=== PATIENT | female | born 1960 | race Caucasian/White ===

== ENCOUNTER 2016-03-10 10:47 | Emergency (ER) | payer MEDICAID ==
[2016-03-10] MEDS ORDERED: LIDOCAINE-EPINEPH-TETRACAINE 3 ML SYRINGE TOP STA (11:36)
[2016-03-10] MEDS ORDERED: LIDOCAINE-EPINEPH-TETRACAINE 3 ML SYRINGE TOP ONE (11:37)
== END 2016-03-10 12:38 | disposition home or self-care (01) ==
DX: L02.811 Cutaneous abscess of head [any part, except face] (principal); F17.200 Nicotine dependence, unspecified, uncomplicated

== ENCOUNTER 2016-10-03 19:08 | Outpatient (CLI) | payer MEDICAID | END 2016-10-03 19:09 | disposition critical access hospital (66) | LOC: EMS 19:08 | PROVIDERS: ATTEND Surgery | DX: M54.9 Dorsalgia, unspecified (principal) | CPT/HCPCS: A0425; A0427 ==

== ENCOUNTER 2016-10-03 19:47 | Emergency (ER) | payer MEDICAID ==
--- NOTE | 2016-10-03 19:57 | ED Physician Documentation ---
PD HPI BACK PAIN - Stated complaint Stated Complaint: LEG PAIN/NUMBNESS - Chief complaint Chief Complaint: Back Pain - History obtained from History obtained from: Patient - History of Present Illness Timing - duration: Days (worse than baseline, with chronic low back pain for months/years.) Timing - details: Gradual onset, Still present, Waxing and waning Location: Lower, Right Quality: Pain, Spasm, Aching Associated symptoms: Other (right abd pain as well.). No: Fever, Weakness, Numbness Improves with: No: Rest Worsened by: Movement, Twisting Contributing factors: No: Lifting, Twisting, Trauma, Anticoagulated Similar symptoms before: Diagnosis (low back pain) Recently seen: Clinic (has changed primary care and new PCP starting without pain meds but trying other meds first, per patient.) Review of Systems Constitutional: denies: Fever, Chills Nose: denies: Rhinorrhea / runny nose, Congestion Throat: denies: Sore throat Respiratory: denies: Cough GI: reports: Abdominal Pain (right side). 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, Hysterectomy - Present Medications Home Medications: Ambulatory Orders Medication Instructions Recorded Confirmed Sertraline [Zoloft] 50 mg PO DAILY 05/04/13 06/09/14 Doxycycline Hyclate 100 mg PO BID #14 capsule 03/10/16 Ibuprofen [Motrin] 800 mg PO Q8H PRN #20 tablet 03/10/16 Dexamethasone [Decadron] 4 mg PO DAILY #5 tablet 10/03/16 Methocarbamol [Robaxin] 500 mg PO Q6H PRN #25 tablet 10/03/16 Oxycodone HCl/Acetaminophen 1 each PO Q6H PRN #20 tablet 10/03/16 [Percocet 5-325 mg Tablet] - Allergies Allergies/Adverse Reactions: Allergies Allergy/AdvReac Type Severity Reaction Status Date / Time codeine Allergy Rash Verified 10/03/16 19:52 Sulfa (Sulfonamide Allergy Rash Verified 10/03/16 19:52 Antibiotics) - Social History Does the pt smoke?: Yes Smoking Status: Current every day smoker Does the pt drink ETOH?: No Does the pt have substance abuse?: Yes Substance Use and Type: Marijuana - Immunizations Immunizations are current?: Yes - POLST Patient has POLST: No PD ED PE NORMAL - Vitals Vital signs reviewed: Yes - General General: Alert and oriented X 3, Well developed/nourished, Other (appears in pain, guarded movement of the low back. ) - HEENT HEENT: Atraumatic, Pharynx benign - Neck Neck: Supple, no meningeal sign, No adenopathy - Cardiac Cardiac: RRR, No murmur - Respiratory Respiratory: Clear bilaterally - Abdomen Abdomen: Normal bowel sounds, Soft, Non distended, No organomegaly, Other ( tender right mid abd and lateral abd. No masses, sores, redness. no rash. ) - Female Female : Deferred - Rectal Rectal: Deferred - Back Back: No CVA TTP, No spinal TTP (but is tender in right paralumbar muscles. No rash nor sores. ) - Derm Derm: Normal color, Warm and dry - Extremities Extremities: No tenderness to palpate, Normal ROM s pain - Neuro Neuro: Alert and oriented X 3, No motor deficit, No sensory deficit, Normal speech, Other (normal knee reflexes. ) - Psych Psych: Normal mood, Normal affect Results - Vitals Vitals: Oxygen O2 Source Room air - Labs Labs: Laboratory Tests 10/03/16 10/03/16 10/03/16 20:16 20:16 20:28 WBC 11.0 H RBC 4.41 Hgb 13.3 Hct 39.0 MCV 88.5 MCH 30.1 MCHC 33.9 RDW 13.9 Plt Count 277 MPV 6.9 L Neut # 8.3 H Lymph # 1.8 [place] # 0.6 Eos # 0.2 Baso # 0.1 Absolute Nucleated RBC 0.00 Nucleated RBCs 0.0 Sodium 137 Potassium 3.6 Chloride 104 Carbon Dioxide 25 Anion Gap 8.0 BUN 12 Creatinine 0.7 Estimated GFR (MDRD) 87 L Glucose 101 H Calcium 8.9 Total Bilirubin 0.4 AST 28 ALT 27 Alkaline Phosphatase 104 Total Protein 7.4 Albumin 3.9 Globulin 3.5 Albumin/Globulin Ratio 1.1 Lipase 25 Urine Color YELLOW Urine Clarity CLOUDY Urine pH 5.5 Ur Specific Post >=1.030 H Urine Protein NEGATIVE Urine Glucose (UA) NEGATIVE Urine Ketones NEGATIVE Urine Occult Blood NEGATIVE Urine Nitrite NEGATIVE Urine Bilirubin NEGATIVE Urine Urobilinogen 1 (NORMAL) Ur Leukocyte Esterase SMALL H Urine RBC 0-5 Urine WBC 6-10 H Ur Squamous Epith Cells MOD Squamous H Urine Bacteria Few Ur Microscopic Review INDICATED Urine Culture Comments NOT INDICATED - Rads (name of study) abd CT Radiology: Prelim report reviewed (no acute process to account for the pain. ) PD MEDICAL DECISION MAKING - ED course Complexity details: reviewed results (CT is okay, as well as urine/labs. So the abd pain component may be radiating from low back. No acute other process seen. ), considered differential, d/w patient Departure - Departure Disposition: 01 Home, Self Care Clinical Impression: Lower abdominal pain Back pain Qualifiers: Back pain location: low back pain Chronicity: chronic Back pain laterality: right Sciatica presence: with sciatica Sciatica laterality: sciatica of right side Qualified Code(s): M54.41 - Lumbago with sciatica, right side Condition: Stable Record reviewed to determine appropriate education?: Yes Instructions: ED Sciatica Prescriptions: Dexamethasone [Decadron] 4 mg PO DAILY #5 tablet Oxycodone HCl/Acetaminophen [Percocet 5-325 mg Tablet] 1 each PO Q6H PRN #20 tablet PRN Reason: Pain Methocarbamol [Robaxin] 500 mg PO Q6H PRN #25 tablet PRN Reason: Spasms Comments: Continue the gabapentin for now. Use some Tylenol 650 mg 4 times a day for basic pain. Add Percocet if needed for pain. He could also use Robaxin muscle relaxant. I would also consider short course of anti-inflammatory, Decadron daily for 5 days. Follow-up with your primary care at your upcoming appointment. The CT scan appears normal without any abdominal process obviously causing the pain right now so I presume it is radiating from your back. Discharge Date/Time: 10/03/16 22:39
[2016-10-03] MEDS ORDERED: HYDROmorphone 1 MG/ML SYRINGE IVP STA (20:08)
[2016-10-03] MEDS ORDERED: KETOROLAC 60 MG/2 ML VIAL IVP STA (20:08)
[2016-10-03] MEDS ORDERED: diazePAM INJ 5 MG/ML SYRINGE IVP STA (20:09)
[2016-10-03 20:26] LABS: BASOPHILS # (AUTO) 0.1 10^3/uL (0.0-0.1); BASOPHILS % (AUTO) 0.5 %; EOSINOPHILS # (AUTO) 0.2 10^3/uL (0.0-0.7); HGB - HEMOGLOBIN 13.3 g/dL (12.0-16.0); LYMPHOCYTES # (AUTO) 1.8 10^3/uL (1.5-3.5); LYMPHOCYTES % (AUTO) 16.4 %; MEAN CORPUSCULAR HEMOGLOBIN 30.1 pg (27.0-31.0); MEAN CORPUSCULAR HGB CONC 33.9 g/dL (32.0-36.0); MEAN CORPUSCULAR VOLUME 88.5 fL (81.0-99.0); MEAN PLATELET VOLUME 6.9 fL (7.9-10.8); MONOCYTES # (AUTO) 0.6 10^3/uL (0.0-1.0); MONOCYTES % (AUTO) 5.5 %; NEUTROPHILS # (AUTO) 8.3 10^3/uL (1.5-6.6); NEUTROPHILS % (AUTO) 75.6 %; RED BLOOD COUNT 4.41 10^6/uL (4.20-5.40); RED CELL DISTRIBUTION WIDTH 13.9 % (12.0-15.0)
[2016-10-03] MEDS ORDERED: HYDROmorphone 1 MG/ML SYRINGE ONE (20:31)
[2016-10-03] MEDS ORDERED: diazePAM INJ 5 MG/ML SYRINGE ONE (20:31)
[2016-10-03] MEDS ORDERED: KETOROLAC 30 MG/ML VIAL ONE (20:32)
[2016-10-03 20:37] LABS: ALBUMIN/GLOBULIN RATIO 1.1 (1.0-2.2); BILIRUBIN,TOTAL 0.4 mg/dL (0.2-1.0); CALCIUM 8.9 mg/dL (8.5-10.3); CREATININE 0.7 mg/dL (0.4-1.0); POTASSIUM 3.6 mmol/L (3.5-5.0); TOTAL PROTEIN 7.4 g/dL (6.7-8.2)
[2016-10-03 20:42] LABS: PH,URINE 5.5 PH (5.0-7.5)
[2016-10-03 20:49] LABS: BILIRUBIN,URINE NEGATIVE (NEGATIVE); UA w/ MICROSCOPIC CHARGE YES
[2016-10-03 20:55] LABS: UR CULTURE IF IND NOT INDICATED
[2016-10-03] MEDS ORDERED: IOPAMIDOL-300 100 ML VIAL IVP ONE (21:02)
--- NOTE | 2016-10-03 21:37 | CT Preliminary Report ---
Exam: CT Abdomen/Pelvis W/ IMPRESSION: 1. No acute CT abnormality to explain clinical symptoms. The kidneys appear normal. The bladder is em pty. No localized acute inflammatory process. [facility] SITE ID: [id number]
--- NOTE | 2016-10-03 21:39 | CT Report ---
EXAM: CT ABDOMEN AND PELVIS EXAM DATE: 10/03/2016 09:03 PM. CLINICAL HISTORY: Lower abd pain for 3 days. Dysuria COMPARISONS: 10/29/2015. TECHNIQUE: Routine helical CT imaging was performed through the abdomen and pelvis. IV contrast: 100 cc Isovue-300 IV. Enteric contrast: No. Reconstructions: Coronal and sagittal. In accordance with CT protocol optimization, one or more of the following dose reduction techniques w ere utilized for this exam: automated exposure control, adjustment of mA and/or KV based on patient s ize, or use of iterative reconstructive technique. FINDINGS: Lung Bases: There are bilateral basilar pulmonary ground glass opacities. Liver: There is a low-density lesion in the left lobe of the liver which is unchanged and probably a cyst. Gallbladder/Bile Ducts: The gallbladder surgically absent. Spleen: Normal. Pancreas: Normal. Adrenal Glands: Normal. Kidneys: The kidneys are normal in size with normal enhancement. No hydronephrosis or perinephric ravin ma. Peritoneal Cavity/Bowel: The bowel is normal in caliber. The appendix appears normal. No abnormal flu id collection or localized inflammatory process. Pelvic Organs: Urinary bladder is empty. Uterus is absent. Vasculature: No aneurysms or other significant abnormality. Bones: No significant abnormality. Other: None. IMPRESSION: 1. No acute CT abnormality to explain clinical symptoms. The kidneys appear normal. The bladder is em pty. No localized acute inflammatory process. [facility] Referring Provider Line: [phone] SITE ID: [id number]
[2016-10-03] MEDS ORDERED: oxyCODONE/ACET 5/325 Prepack 4 PO STA (22:19)
[2016-10-03] MEDS ORDERED: oxyCODONE/ACET 5/325 Prepack 4 PO ONE (22:29)
[2016-10-03 22:31] VITALS: BP 125/65
== END 2016-10-03 22:39 | disposition home or self-care (01) ==
LOC: EDUNIT# → ED 19:47
DX: M54.41 Lumbago with sciatica, right side (principal)
CPT/HCPCS: 36415; 74177; 80053; 81001; 83690; 85025; 96374; 96375; 99284; J1170; Q9967; 81003; 87086

== ENCOUNTER 2017-09-07 10:08 | Outpatient (CLI) | payer MEDICAID | END 2017-09-07 10:09 | disposition short-term general hospital (02) | LOC: EMS 10:08 | PROVIDERS: ATTEND Surgery | DX: R10.9 Unspecified abdominal pain (principal); R11.10 Vomiting, unspecified | CPT/HCPCS: A0170; A0425; A0429; A0999 ==